=== PATIENT | female | born 1995 | race Caucasian/White ===

== ENCOUNTER 2017-01-27 17:00 | Inpatient (IN) | payer MEDICAID ==
[~2017-01-27] VITALS: Ht 167.6 cm; Wt 118.2 kg
[2017-01-27 17:56] LABS: Urine Blood TRACE /uL (Negative); Urine Color Yellow (Yellow); Urine Glucose Normal (Normal); Urine Ketone Negative (Negative); Urine Mucus FEW (None Seen); Urine Nitrite Negative (Negative); Urine RBC 1 /hpf (0 - 4); Urine Squamous Epithelial Cell FEW /hpf (<5)
[2017-01-27 18:00] LABS: Urine Bilirubin POSITIVE (Negative)
[2017-01-27 18:12] LABS: Basophils # (auto) 0 uL; Basophils % (auto) 0.3 % (0.0-2.0); Eosinophils # (auto) 0.1 uL; Eosinophils % (auto) 0.8 % (0.0-7.0); Hematocrit 41.8 % (36.0-46.0); Lymphocytes # (auto) 1.6 uL; Lymphocytes % (auto) 18.8 % (10.0-50.0); Mean Corpuscular Hemoglobin 27.1 pg (28.0-32.0); Mean Corpuscular Hgb Conc. 33.4 g/dL (32.0-36.0); Monocytes # (auto) 0.7 uL; Neutrophils # (auto) 6.1 uL; Neutrophils % (auto) 72.1 % (37.0-80.0); Platelet Count (auto) 391 10^3/uL (140-450); Red Cell Distribution Width 13.9 % (11.6-16.0); White Blood Cell 8.4 10^3/uL (4.4-10.8)
[2017-01-27 18:32] LABS: Albumin 3.6 g/dL (3.4-5.0); BUN/Creatinine Ratio 11.9; Bilirubin, Total 1.1 mg/dL (0.2-1.0); Calcium 8.9 mg/dL (8.5-10.1); Potassium 3.9 mmol/L (3.5-5.1); Total Protein 7.7 g/dL (6.4-8.2)
[2017-01-27] MEDS ORDERED: SODIUM CHLORIDE 0.9% 1,000 ML IV ONE ×2 (22:30→23:45)
[2017-01-27] MEDS ORDERED: cefTRIAXone 1GM/50ML D5W 50 ML IV ONE (23:45)
[2017-01-27] MEDS ORDERED: ONDANSETRON HCL 4 MG/2 ML VIAL IM ONE (23:45)
[2017-01-27] MEDS ORDERED: MORPHINE SULFATE 4 MG/ML SYRG IM ONE (23:45)
[2017-01-28] MEDS ORDERED: NITROGLYCERIN 0.4 MG SL TAB SL PRN
[2017-01-28] MEDS ORDERED: MORPHINE SULF INJ 2 MG/ML SYRINGE 1ML IV PRN
[2017-01-28] MEDS: MORPHINE SULFATE 4 MG/ML SYRG IV PRN ×2 (00:06→04:55)
[2017-01-28] MEDS: ONDANSETRON HCL 4 MG/2 ML VIAL IV PRN ×3 (00:06→18:09)
[2017-01-28] MEDS ORDERED: ZOLPIDEM TARTRATE 5 MG TAB PO PRN (01:30)
[2017-01-28 01:46] VITALS: BP 129/84
[2017-01-28] MEDS: metroNIDAZOLE 500MG/100ML 100 ML IV SCH ×3 (04:43→20:00)
[2017-01-28 05:19] LABS: Basophils # (auto) 0.1 uL; Basophils % (auto) 0.5 % (0.0-2.0); Eosinophils # (auto) 0.2 uL; Eosinophils % (auto) 1.6 % (0.0-7.0); Hematocrit 39.5 % (36.0-46.0); Lymphocytes % (auto) 28.2 % (10.0-50.0); Mean Corpuscular Hemoglobin 27.1 pg (28.0-32.0); Mean Corpuscular Volume 82.1 fL (80.0-100.0); Mean Platelet Volume 9.4 fL (7.4-10.4); Monocytes # (auto) 0.6 uL; Neutrophils # (auto) 6.9 uL; Neutrophils % (auto) 63.7 % (37.0-80.0); Platelet Count (auto) 366 10^3/uL (140-450); Red Cell Distribution Width 13.8 % (11.6-16.0); White Blood Cell 10.8 10^3/uL (4.4-10.8)
[2017-01-28 05:35] VITALS: BP 110/62
[2017-01-28 05:52] LABS: Albumin 3.3 g/dL (3.4-5.0); BUN/Creatinine Ratio 13.9; Bilirubin, Total 0.6 mg/dL (0.2-1.0); Calcium 8.2 mg/dL (8.5-10.1); Potassium 3.6 mmol/L (3.5-5.1)
[2017-01-28] MEDS ORDERED: INFLUENZA QUAD 2016-2017 0.5 ML SYRG IM ONE (06:45)
[2017-01-28] MEDS ORDERED: PNEUMOCOCCAL VACC POLYS 25 MCG/0.5 ML VIAL IM ONE (06:45)
[2017-01-28 09:07] VITALS: BP 107/55
[2017-01-28 11:22] LABS: INR 1.09 (0.9-1.15); Prothrombin Time 11.2 sec (9.37-12.3)
[2017-01-28 12:00] VITALS: BP 123/73
[2017-01-28] MEDS: buPROPion HCL 75 MG TAB PO SCH (12:42)
[2017-01-28] MEDS: PANTOPRAZOLE SODIUM 40 MG/10 ML VIAL IV SCH (12:42)
[2017-01-28 14:06] LABS: Hepatitis B Surface Antibody Negative
[2017-01-28 17:41] VITALS: BP 116/60
[2017-01-28 21:19] VITALS: BP 131/67
[2017-01-28] MEDS: cefTRIAXone 1GM/50ML D5W 50 ML IV SCH (21:20)
[2017-01-28] MEDS ORDERED: GASTROGRAFIN 30 ML SOL ONE (23:37)
[2017-01-29] MEDS: metroNIDAZOLE 500MG/100ML 100 ML IV SCH ×3 (04:06→20:19)
[2017-01-29 05:32] VITALS: BP 115/59
[2017-01-29 07:07] LABS: Potassium 3.7 mmol/L (3.5-5.1)
[2017-01-29 07:12] LABS: Albumin 3.2 g/dL (3.4-5.0); BUN/Creatinine Ratio 17.1; Calcium 8.1 mg/dL (8.5-10.1)
[2017-01-29 07:21] LABS: Bilirubin, Total 0.4 mg/dL (0.2-1.0); Total Protein 6.8 g/dL (6.4-8.2)
[2017-01-29 07:34] LABS: Basophils # (auto) 0 uL; Basophils % (auto) 0.4 % (0.0-2.0); Eosinophils # (auto) 0.2 uL; Eosinophils % (auto) 2.1 % (0.0-7.0); Hematocrit 38.7 % (36.0-46.0); Hemoglobin 13.1 g/dL (12.2-16.2); Lymphocytes # (auto) 2.3 uL; Lymphocytes % (auto) 28.4 % (10.0-50.0); Mean Corpuscular Hemoglobin 27.2 pg (28.0-32.0); Mean Corpuscular Hgb Conc. 33.8 g/dL (32.0-36.0); Mean Corpuscular Volume 80.3 fL (80.0-100.0); Mean Platelet Volume 9.3 fL (7.4-10.4); Monocytes # (auto) 0.8 uL; Monocytes % (auto) 9.2 % (0.0-12.0); Neutrophils # (auto) 4.9 uL; Neutrophils % (auto) 59.9 % (37.0-80.0); Platelet Count (auto) 336 10^3/uL (140-450); Red Cell Distribution Width 13.7 % (11.6-16.0); White Blood Cell 8.2 10^3/uL (4.4-10.8)
[2017-01-29 09:34] VITALS: BP 109/50
[2017-01-29] MEDS: PANTOPRAZOLE SODIUM 40 MG/10 ML VIAL IV SCH (10:33)
[2017-01-29] MEDS: buPROPion HCL 75 MG TAB PO SCH (10:33)
[2017-01-29 13:00] VITALS: BP 110/59
[2017-01-29 17:08] VITALS: BP_SYST 111; BP_SYST 117; BP_DIAS 61; BP_DIAS 80
[2017-01-29] MEDS: ONDANSETRON HCL 4 MG/2 ML VIAL IV PRN (20:19)
[2017-01-29] MEDS: cefTRIAXone 1GM/50ML D5W 50 ML IV SCH (21:26)
[2017-01-29 21:48] VITALS: BP 98/61
[2017-01-30] MEDS: metroNIDAZOLE 500MG/100ML 100 ML IV SCH ×3 (03:59→20:16)
[2017-01-30 04:50] VITALS: BP 100/50
[2017-01-30 05:53] LABS: Basophils # (auto) 0 uL; Basophils % (auto) 0.3 % (0.0-2.0); DEFINITIVE VIEW TRANSMISSION; Eosinophils # (auto) 0.1 uL; Eosinophils % (auto) 1.4 % (0.0-7.0); Hematocrit 39.5 % (36.0-46.0); Hemoglobin 12.9 g/dL (12.2-16.2); Lymphocytes % (auto) 23.4 % (10.0-50.0); Mean Corpuscular Hemoglobin 26.8 pg (28.0-32.0); Mean Corpuscular Hgb Conc. 32.8 g/dL (32.0-36.0); Mean Corpuscular Volume 81.7 fL (80.0-100.0); Mean Platelet Volume 8.9 fL (7.4-10.4); Monocytes # (auto) 0.7 uL; Monocytes % (auto) 8.5 % (0.0-12.0); Neutrophils # (auto) 5.8 uL; Neutrophils % (auto) 66.4 % (37.0-80.0); Platelet Count (auto) 321 10^3/uL (140-450); Red Cell Distribution Width 13.1 % (11.6-16.0); White Blood Cell 8.7 10^3/uL (4.4-10.8)
[2017-01-30] MEDS: ONDANSETRON HCL 4 MG/2 ML VIAL IV PRN (05:53)
[2017-01-30] MEDS: HYDROmorphone HCL 2 MG/ML VL IV PRN (05:53)
[2017-01-30 06:17] LABS: BUN/Creatinine Ratio 20.9; Calcium 8.4 mg/dL (8.5-10.1); Magnesium 2.2 mg/dL (1.6-2.6); Phosphorus 2.9 mg/dL (2.5-4.90); Potassium 3.8 mmol/L (3.5-5.1)
[2017-01-30 08:00] VITALS: BP 106/55
[2017-01-30] MEDS: buPROPion HCL 75 MG TAB PO SCH (09:44)
[2017-01-30] MEDS: PANTOPRAZOLE SODIUM 40 MG/10 ML VIAL IV SCH (09:45)
[2017-01-30] MEDS: MORPHINE SULFATE 4 MG/ML SYRG IV PRN (12:18)
[2017-01-30 13:00] VITALS: BP 115/59
[2017-01-30 17:00] VITALS: BP 123/71
[2017-01-30 20:00] VITALS: BP 126/61
[2017-01-30] MEDS: HYDROcodone-ACET 5/325MG TAB PO PRN (20:16)
[2017-01-30] MEDS: cefTRIAXone 1GM/50ML D5W 50 ML IV SCH (21:31)
[2017-01-30 22:00] VITALS: BP 126/61
[2017-01-31] MEDS: metroNIDAZOLE 500MG/100ML 100 ML IV SCH ×3 (03:59→20:01)
[2017-01-31 05:00] VITALS: BP 105/66
[2017-01-31 06:02] LABS: Basophils # (auto) 0 uL; Basophils % (auto) 0.3 % (0.0-2.0); Eosinophils # (auto) 0.1 uL; Eosinophils % (auto) 1.1 % (0.0-7.0); Hematocrit 41.3 % (36.0-46.0); Hemoglobin 13.5 g/dL (12.2-16.2); Lymphocytes # (auto) 2.3 uL; Lymphocytes % (auto) 23.5 % (10.0-50.0); Mean Corpuscular Hemoglobin 27.1 pg (28.0-32.0); Mean Corpuscular Hgb Conc. 32.6 g/dL (32.0-36.0); Mean Corpuscular Volume 83.1 fL (80.0-100.0); Mean Platelet Volume 8.9 fL (7.4-10.4); Monocytes # (auto) 0.7 uL; Monocytes % (auto) 7.4 % (0.0-12.0); Neutrophils # (auto) 6.6 uL; Neutrophils % (auto) 67.7 % (37.0-80.0); Platelet Count (auto) 348 10^3/uL (140-450); Red Cell Distribution Width 13.4 % (11.6-16.0); White Blood Cell 9.8 10^3/uL (4.4-10.8)
[2017-01-31 06:15] LABS: INR 1.17 (0.9-1.15)
[2017-01-31 06:26] LABS: Albumin 3.3 g/dL (3.4-5.0); Calcium 8.1 mg/dL (8.5-10.1); Magnesium 1.9 mg/dL (1.6-2.6); Potassium 3.7 mmol/L (3.5-5.1)
[2017-01-31 06:28] LABS: BUN/Creatinine Ratio 23.1
[2017-01-31 06:31] LABS: Bilirubin, Total 0.5 mg/dL (0.2-1.0); Total Protein 7.3 g/dL (6.4-8.2)
[2017-01-31] MEDS: HYDROcodone-ACET 5/325MG TAB PO PRN (08:26)
[2017-01-31 09:00] VITALS: BP 115/71
[2017-01-31] MEDS: buPROPion HCL 75 MG TAB PO SCH (10:22)
[2017-01-31] MEDS: PANTOPRAZOLE SODIUM 40 MG/10 ML VIAL IV SCH (10:23)
[2017-01-31 13:00] VITALS: BP 95/61
[2017-01-31] MEDS ORDERED: fentaNYL CITRATE 100 MCG/2 ML VL ONE ×2 (13:13→14:47)
[2017-01-31] MEDS ORDERED: MIDAZOLAM HCL 1MG/1ML-2 ML VIAL ONE (13:14)
[2017-01-31] MEDS ORDERED: MEPERIDINE HCL (50 MG/ML) 1 ML VIAL ONE (13:14)
[2017-01-31] MEDS ORDERED: BUPIVACAINE 0.25% INJ 50ML VIAL ONE (13:16)
[2017-01-31] MEDS ORDERED: SUCCINYLCHOLINE CHLORIDE 20 MG/ML 10ML VIAL IV ONE (13:33)
[2017-01-31] MEDS ORDERED: KETOROLAC TROMETH 30 MG/ML 1ML VIAL IV ONE (13:45)
[2017-01-31] MEDS ORDERED: hydrALAZINE HCL 20 MG/ML VL IV PRN (13:45)
[2017-01-31] MEDS ORDERED: LABETALOL HCL 5 MG/ML 4ML SYRINGE IV PRN (13:45)
[2017-01-31] MEDS ORDERED: ePHEDrine SULFATE 50 MG/ML AMP IV PRN (13:45)
[2017-01-31] MEDS ORDERED: ONDANSETRON HCL 4 MG/2 ML VIAL IV ONE (13:45)
[2017-01-31] MEDS ORDERED: MORPHINE SULF INJ 2 MG/ML SYRINGE 1ML IV PRN (13:45)
[2017-01-31] MEDS ORDERED: MIDAZOLAM HCL 1MG/1ML-2 ML VIAL IV PRN (13:45)
[2017-01-31] MEDS ORDERED: PROPOFOL 10 MG/ML 20 ML IV ONE ×2 (14:08→14:34)
[2017-01-31] MEDS ORDERED: DEXAMETHASONE SOD PHOS 10MG/1ML VIAL INJ ONE (14:08)
[2017-01-31] MEDS ORDERED: KETOROLAC TROMETH 30 MG/ML 1ML VIAL ONE (14:32)
[2017-01-31] MEDS ORDERED: GLYCOPYRROLATE 0.2 MG/ML 1ML VIAL ONE (14:53)
[2017-01-31] MEDS ORDERED: NEOSTIGMINE 1 MG/ML INJ (10mg/10ML VIAL) ONE (14:53)
[2017-01-31] MEDS: HYDROmorphone HCL 2 MG/ML VL IV PRN ×5 (15:24→20:49)
[2017-01-31 17:18] VITALS: BP 150/81
[2017-01-31 20:00] VITALS: BP 97/55
[2017-01-31] MEDS: cefTRIAXone 1GM/50ML D5W 50 ML IV SCH (21:08)
[2017-01-31 22:26] VITALS: BP 97/55
[2017-02-01] MEDS: HYDROmorphone HCL 2 MG/ML VL IV PRN ×3 (02:57→21:05)
[2017-02-01] MEDS: ONDANSETRON HCL 4 MG/2 ML VIAL IV PRN ×2 (02:58→10:21)
[2017-02-01] MEDS: metroNIDAZOLE 500MG/100ML 100 ML IV SCH ×3 (04:22→20:54)
[2017-02-01 05:17] VITALS: BP 113/50
[2017-02-01 06:33] LABS: Basophils # (auto) 0 uL; Basophils % (auto) 0.1 % (0.0-2.0); Eosinophils # (auto) 0 uL; Hematocrit 39.5 % (36.0-46.0); Hemoglobin 13.4 g/dL (12.2-16.2); Lymphocytes # (auto) 1.2 uL; Lymphocytes % (auto) 7.8 % (10.0-50.0); Mean Corpuscular Hemoglobin 27.3 pg (28.0-32.0); Mean Corpuscular Volume 80.3 fL (80.0-100.0); Mean Platelet Volume 9.2 fL (7.4-10.4); Monocytes # (auto) 0.6 uL; Monocytes % (auto) 3.8 % (0.0-12.0); Neutrophils # (auto) 13.4 uL; Neutrophils % (auto) 88.3 % (37.0-80.0); Platelet Count (auto) 430 10^3/uL (140-450); Red Cell Distribution Width 13.4 % (11.6-16.0); White Blood Cell 15.2 10^3/uL (4.4-10.8)
[2017-02-01 06:40] LABS: INR 1.13 (0.9-1.15); Prothrombin Time 11.6 sec (9.37-12.3)
[2017-02-01 06:41] LABS: Potassium 4.2 mmol/L (3.5-5.1)
[2017-02-01 06:51] LABS: Albumin 3.3 g/dL (3.4-5.0); BUN/Creatinine Ratio 13.6; Calcium 8.5 mg/dL (8.5-10.1); Magnesium 1.9 mg/dL (1.6-2.6)
[2017-02-01 06:53] LABS: Bilirubin, Total 0.2 mg/dL (0.2-1.0); Total Protein 7.2 g/dL (6.4-8.2)
[2017-02-01 08:00] VITALS: BP 113/50
[2017-02-01 08:57] VITALS: BP 106/51
[2017-02-01] MEDS: buPROPion HCL 75 MG TAB PO SCH (10:12)
[2017-02-01] MEDS: PANTOPRAZOLE SODIUM 40 MG/10 ML VIAL IV SCH (10:13)
[2017-02-01 12:12] VITALS: BP 119/64
[2017-02-01] MEDS: HYDROcodone-ACET 5/325MG TAB PO PRN ×2 (13:48→18:14)
[2017-02-01 17:11] VITALS: BP 111/57
[2017-02-01] MEDS: cefTRIAXone 1GM/50ML D5W 50 ML IV SCH (20:55)
[2017-02-01 21:30] VITALS: BP 127/68
[2017-02-02 05:00] VITALS: BP 127/56
[2017-02-02] MEDS: metroNIDAZOLE 500MG/100ML 100 ML IV SCH ×3 (05:14→21:12)
[2017-02-02] MEDS: HYDROmorphone HCL 2 MG/ML VL IV PRN (05:39)
[2017-02-02 07:26] LABS: Basophils # (auto) 0.1 uL; Basophils % (auto) 0.5 % (0.0-2.0); Eosinophils # (auto) 0 uL; Eosinophils % (auto) 0.3 % (0.0-7.0); Hematocrit 35.2 % (36.0-46.0); Hemoglobin 11.6 g/dL (12.2-16.2); Lymphocytes % (auto) 31.3 % (10.0-50.0); Mean Corpuscular Hemoglobin 27.3 pg (28.0-32.0); Mean Corpuscular Hgb Conc. 33.2 g/dL (32.0-36.0); Mean Corpuscular Volume 82.3 fL (80.0-100.0); Mean Platelet Volume 9.4 fL (7.4-10.4); Monocytes # (auto) 0.7 uL; Monocytes % (auto) 7.2 % (0.0-12.0); Neutrophils # (auto) 5.7 uL; Neutrophils % (auto) 60.7 % (37.0-80.0); Platelet Count (auto) 339 10^3/uL (140-450); Red Cell Distribution Width 13.6 % (11.6-16.0); White Blood Cell 9.5 10^3/uL (4.4-10.8)
[2017-02-02 07:43] LABS: Albumin 2.9 g/dL (3.4-5.0); BUN/Creatinine Ratio 16.7; Bilirubin, Total 0.3 mg/dL (0.2-1.0); Calcium 8.3 mg/dL (8.5-10.1); Potassium 3.7 mmol/L (3.5-5.1); Total Protein 6.1 g/dL (6.4-8.2)
[2017-02-02 09:00] VITALS: BP 107/47
[2017-02-02] MEDS: PANTOPRAZOLE SODIUM 40 MG/10 ML VIAL IV SCH (10:27)
[2017-02-02] MEDS: buPROPion HCL 75 MG TAB PO SCH (10:27)
[2017-02-02 13:00] VITALS: BP 110/54
[2017-02-02] MEDS: HYDROcodone-ACET 5/325MG TAB PO PRN ×2 (13:19→18:36)
[2017-02-02 17:00] VITALS: BP_SYST 108; BP_SYST 113; BP_DIAS 43; BP_DIAS 77
[2017-02-02] MEDS: BOOST PLUS 8 ounce PO SCH (18:00)
[2017-02-02 20:00] VITALS: BP 104/55
[2017-02-02 21:49] VITALS: BP 104/55
[2017-02-03] MEDS: HYDROcodone-ACET 5/325MG TAB PO PRN ×2 (02:40→11:49)
[2017-02-03 05:36] VITALS: BP 98/54
[2017-02-03] MEDS: BOOST PLUS 8 ounce PO SCH ×3 (06:00→11:49)
[2017-02-03 07:18] LABS: Basophils # (auto) 0.1 uL; Basophils % (auto) 0.9 % (0.0-2.0); Eosinophils # (auto) 0.1 uL; Eosinophils % (auto) 1.1 % (0.0-7.0); Hematocrit 35.1 % (36.0-46.0); Hemoglobin 11.8 g/dL (12.2-16.2); Lymphocytes # (auto) 3.3 uL; Lymphocytes % (auto) 39.6 % (10.0-50.0); Mean Corpuscular Hemoglobin 27.6 pg (28.0-32.0); Mean Corpuscular Hgb Conc. 33.5 g/dL (32.0-36.0); Mean Corpuscular Volume 82.2 fL (80.0-100.0); Mean Platelet Volume 9.7 fL (7.4-10.4); Monocytes # (auto) 0.8 uL; Monocytes % (auto) 9.1 % (0.0-12.0); Neutrophils # (auto) 4.1 uL; Neutrophils % (auto) 49.3 % (37.0-80.0); Platelet Count (auto) 340 10^3/uL (140-450); Red Cell Distribution Width 13.8 % (11.6-16.0); SUSPECT VIEW TRANSMISSION; White Blood Cell 8.3 10^3/uL (4.4-10.8)
[2017-02-03 07:51] LABS: Albumin 2.8 g/dL (3.4-5.0); BUN/Creatinine Ratio 22.2; Bilirubin, Total 0.2 mg/dL (0.2-1.0); Calcium 8.9 mg/dL (8.5-10.1); Potassium 3.6 mmol/L (3.5-5.1)
[2017-02-03 08:00] VITALS: BP 106/57
[2017-02-03 09:00] VITALS: BP 106/57
[2017-02-03] MEDS: buPROPion HCL 75 MG TAB PO SCH (09:42)
[2017-02-03] MEDS: PANTOPRAZOLE SODIUM 40 MG/10 ML VIAL IV SCH (09:43)
[2017-02-03 13:00] VITALS: BP 128/67
== END 2017-02-03 18:05 | disposition home or self-care (01) | DRG 225 ==
LOC: ER 17:08 → OVERFLOW 17:09 → EAST 01-28 01:12
PROVIDERS: ADMIT Family Medicine; ATTEND Internal Medicine
PROC: 0FT44ZZ Resection of Gallbladder, Percutaneous Endoscopic Approach (ICD-10-PCS; 2017-01-31)
PROC: 0DTJ4ZZ Resection of Appendix, Percutaneous Endoscopic Approach (ICD-10-PCS; principal; 2017-01-31 13:40)
DX: K35.80 Unspecified acute appendicitis (principal); K80.00 Calculus of gallbladder with acute cholecystitis without obstruction; E44.0 Moderate protein-calorie malnutrition; K76.0 Fatty (change of) liver, not elsewhere classified; K75.9 Inflammatory liver disease, unspecified; E66.01 Morbid (severe) obesity due to excess calories; F32.9 Major depressive disorder, single episode, unspecified; J45.909 Unspecified asthma, uncomplicated; F41.9 Anxiety disorder, unspecified; Z68.41 Body mass index [BMI] 40.0-44.9, adult; Z23 Encounter for immunization
CPT/HCPCS: 36415; 71010; 74176; 76705; 80048; 80053; 81001; 81025; 83690; 83735; 84100; 85025; 85610; 86704; 86706; 86708; 86803; 86850; 86900; 86901; 87340; 96361; 96374; C9113; J0330; J0696; J1100; J1885; J2250; J2405; J2704; J3490